=== PATIENT | female | born 2005 | race Caucasian/White ===

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

== ENCOUNTER 2024-03-12 16:41 | Emergency (ER) | payer OTHER, SELFPAY ==
[2024-03-12 17:17] VITALS: BP 129/62; PULSE 135; RESP 16; O2SAT 99
[2024-03-12 18:05] LABS: EDCOVIDSCREEN Negative (Negative)
[2024-03-12 18:05] LABS: EDINFLUASCREEN Negative (Negative); EDINFLUBSCREEN Negative (Negative)
--- NOTE | 2024-03-13 20:47 | ED.NAVMDI ---
HPI - Nausea/Vomiting/Diarrhea General Chief complaint: Nausea/Vomiting/Diarrhea Stated complaint: Abdominal Pain/Vomiting/Diarrhea Time Seen by Provider: 03/12/24 17:23 Source: patient, RN notes reviewed and old records reviewed Mode of arrival: ambulatory Limitations: no limitations History of Present Illness HPI Narrative: 18-[facility]-old [facility] to [facility] with complaint of nausea, abdominal discomfort, fever up to 100.4? for 2 days and vomiting and diarrhea that started today. Patient has vomited since [facility] to [facility] and last episode of diarrhea was just prior to arrival. Patient reports recent , states that she was approximately 5-6 weeks at most. Patient states that she utilized pills starting Saturday night. Patient reports vaginal bleeding 2 days ago that has slowly decreased to spotting currently. Patient denies weakness, fatigue, dizziness, allergies, pertinent medical history. Patient resting comfortably in exam room in no acute distress. Respirations even and nonlabored. Related Data Allergies Allergy/AdvReac Type Severity Reaction Status Date / Time No Known Allergies Allergy Unverified 06/15/17 16:22 Review of Systems Review of Systems: All systems reviewed & are unremarkable except as noted in HPI and below Constitutional: Constitutional: Reports as per HPI and Reports fever(s) Eyes: Eyes: Reports no additional eye complaints ENT: Reports system reviewed and no additional complaints, except as documented Cardiovascular: Cardiovascular: Reports no additional cardiovascular complaints, Denies chest pain and Denies dyspnea Respiratory: Respiratory: Reports no additional respiratory complaints, Denies cough and Denies dyspnea Gastrointestinal: Gastrointestinal: Reports as per HPI, Reports abdominal pain, Reports diarrhea, Reports nausea and Reports vomiting Musculoskeletal: Musculoskeletal: Reports no additional musculoskeletal complaints Neurologic: Reports system reviewed and no additional complaints, except as documented Psychiatric: Psychiatric: Reports no additional psychiatric complaints PMFSH Comments At the time of my signature, I reviewed and agree with the nursing past medical, surgical, social, and family history. There is no relevant family history pertinent to the patient complaint. Exam Const: General: cooperative, healthy appearing, comfortable, no acute distress, alert and well nourished Nutritional Appearance: well nourished Orientation/consciousness: patient oriented x3 Limitations: no limitations HENMT: Head: normal to inspection Ears: external ears normal Face/Nose/Sinus: Normal external nose present, Normal nares present, normal facial exam, No erythema and No edema Face and sinus: normal facial exam, no erythema and no edema Mouth: Yes Normal oral and palatal mucosa present Eyes: General: appearance normal, both eyes and all related structures Neck: Neck: normal visual inspection, full ROM and no meningeal signs Lymphatic: no lymphadenopathy noted and no lymphedema noted Chest: Chest palpation & inspection: normal inspection of the chest Resp: Effort & Inspection: normal respiratory effort and able to speak in complete sentences Auscultation: clear to auscultation bilaterally Cardio: Jugular venous distension: no JVD Rate: regular rate Rhythm: regular rhythm Back/Spine/Pelvis: Cervical Spine: cervical ROM normal Skin: General skin exam: normal color, no rashes or lesions noted and turgor normal Neuro: General: patient oriented x3, gait normal, moves all extremities and no meningeal signs Speech: normal speech Gait exam (Neuro): Normal gait present Extrem: General: normal to inspection, full ROM and capillary refill normal Psych: Appearance: grossly normal and well kempt Course Course Emergency Course: Some parts of this dictation were generated by voice recognition software and may contain typographical and/or grammatical inaccuraci
== END 2024-03-12 18:25 | disposition home or self-care (01) ==
PROVIDERS: Emergency Provider Nurse Practitioner Family
DX: O99.611 Diseases of the digestive system complicating pregnancy, first trimester (principal); K52.9 Noninfective gastroenteritis and colitis, unspecified; O98.511 Other viral diseases complicating pregnancy, first trimester; B34.9 Viral infection, unspecified; Z3A.00 Weeks of gestation of pregnancy not specified; Z20.822 Contact with and (suspected) exposure to COVID-19
CPT/HCPCS: 87426; 87804; 99213; G0463

== ENCOUNTER 2024-10-23 16:45 | Emergency (ER) | payer OTHER, SELFPAY ==
--- OUTSIDE RECORDS SUMMARY | 2024-10-23 16:48 | XMS_ITS | Clinical Summary ---
Author Organization [facility] Address [address] [place] [address] Phone Care Team Providers Care Dental Laboratory Technician Name Role Phone Jony Zuleta MD Primary Care Provider Allergies No known active allergies Medications ondansetron (ZOFRAN-ODT) 4 MG TABLET DISPERSIBLE Take 1 Tablet by mouth every 8 hours as needed for Nausea - 1st line. 10 Tablet 08/24/2024 Active Active Problems Problem Noted Date Diagnosed Date Acute pyelonephritis 03/14/2024 Hypokalemia 03/14/2024 Sepsis without acute organ d ysfunction, due to unspecified organism 03/13/2024 Medical 03/01/2024 Encounters Date Type Department Care Team Description 08/24/2024 9:41 AM CDT - 08/24/2024 11:08 AM CDT Emergency [facility] Emergency [address] [place] [address] Darryl Simental MD Abdominal cramping Discharge Disposition: Discharged to home or Selfcare 08/24/2024 Travel from Last 3 Months Social History Tobacco Use Types Packs/Day Years Used Date Smoking Tobacco: Never Smokeless Tobacco: Never Tobacco Cessation:Counseling Given: Not Answered Alcohol Use Standard Drinks/Week Comments Not Currently 0 (1 standard drink = 0.6 oz pur e alcohol) [facility] Utilities Answer Date Recorded In the past 12 months has [place] [employer] electric, gas, oil, or water company threatened to shut off services in your home? No 03/13/2024 Social Connection and Isolation Panel [NHANES] A nswer Date Recorded In a typical week, how many times do you talk on the phone with family, friends, or neighbors? Never 03/13/20 How often do you get togethe r with friends or relatives? Never 03/13/2024 How often do you attend chur ch or rastafari services? Never 03/13/2024 Do you belong to any clubs o r organizations such as restorationism groups, unions, fraternal or athletic groups, or school groups? No 03/13/2024 How often do you attend meet ings of the clubs or organizations you belong to? Never 03/13/2024 Are you , , di vorced, , never , or living with a partner? Living with partner 03/13/2024 AUDIT-C Answer Date Recorded Q1: How often do you have a drink containing alc ohol? Monthly or less 03/13/2024 Q2: How many drinks containi ng alcohol do you have on a typical day when you are drinking? 1 or 2 03/13/2024 Q3: How often do you have si x or more drinks on one occasion? Never 03/13/2024 Overall Financial Resource Strain (CARDIA) Answe r Date Recorded How hard is it for you to pa y for the very basics like food, housing, medical care, and heating? Not hard at all 03/13/2024 [facility] [place] [facility] Occupat ional Health - Occupational Stress Questionnaire Answer Date Recorded Do you feel stress - tense, restless, nervous, or anxious, or unable to sleep at night because your mind is troubled all the time - these days? Not at all 03/13/2024 Exercise Vital Sign Answer Date Recorde d On average, how many days pe r week do you engage in moderate to strenuous exercise (like a brisk walk)? 0 days 03/13/2024 On average, how many minutes do you engage in exercise at this level? 0 min 03/13/2024 Hunger Vital Sign Answer Date Recorded Within the past 12 months, y ou worried that your food would run out before you got the money to buy more. Never true 03/13/20 Within the past 12 months, t he food you bought just didn't last and you didn't have money to get more. Never true 03/13/2024 PRAPARE - Transportation Answer Date Re corded In the past 12 months, has l ack of transportation kept you from medical appointments or from getting medications? No 02/24 In the past 12 months, has l ack of transportation kept you from meetings, work, or from getting things needed for daily living? No 03/13/2024 Housing Stability Vital Sign Answer Mat e Recorded In the last 12 months, was t here a time when you were not able to pay the mortgage or rent on time? No 03/13/2024 In the past 12 months, how m any times have you moved where you were living? 3 03/13/2024 At any time in the past 12 m [facility], were you homeless or living in a correction (including now)? No 03/13/2024 Sexually Active Control Partners Comments Yes Comments No Sex and Gender Information Value Date Recorded Sex Assigned at Not on file Legal Sex Female 2:24 PM CDT Gender Identity Not on file Sexual Orientation Not on file Last Filed Vital Signs Vital Sign Reading Time Taken Comments Blood Pressure 116/46 08/24/2024 11:02 AM CDT Pulse 59 08/24/2024 11:02 AM CDT Temperature 36.2 C (97.2 F) 08/24/2024 9:38 AM CDT Respiratory Rate 18 08/24/2024 11:02 AM CDT Oxygen Saturation 98% 08/24/2024 11:02 AM CDT Inhaled Oxygen Concentration - - Weight 120.2 kg (265 lb) 08/24/2024 9:38 AM CDT Height 170.2 cm (5' 7) 08/24/2024 9:38 AM CDT Body Mass Index 41.5 08/24/2024 9:38 AM CDT Plan of Treatment Health Maintenance Due Date Last Done Comments Hepatitis C Virus (HCV) Screening 2004 Meningococcal B Immunization (1 of 2 - Standard) 2020 Influenza Immunization (#1) 01/26/2024/0 12/2018, 02/26/2018, 04/09/2014 SARS-COV-2 Immunization ( - season) 2024 Respiratory Syncytial Virus (RSV) Immunization (Adult) (1 - 1-dose 75+ series) 2079 Hepatitis B Immunization Completed 005, 2004, 2004 Pneumococcal Immunization Combined Aged Out 07/02/2005, 04/30/2005, 01/08/2005, Additional history exists No longer eligible based on patient's age to complete this topic Human Papillomavirus (HPV) Immunization Completed 01/26/2015, 04/09/2014, 12/17/2013 TdaP Immunization Completed 09/20/2015 Meningococcal Immunization (ACWY) Completed 01/11/2022, 09/20/2015 Rotavirus Immunization Aged Out No lo nger eligible based on patient's age to complete this topic Procedures Procedure Name Priority Date/Time Associated Diagnosis Comments CBC WITH AUTO DIFFERENTIAL STAT 08/24/2024 9:57 AM CDT GOLD TOP TUBE STAT 08/24/2024 9:57 AM CDT POCT URINE HCG () STAT 08/24/2024 9:57 AM CDT URINALYSIS REFLEX IF INDICATED BY ABNORMAL RESULTS STAT 08/24/2024 9:57 AM CDT LIPASE STAT 08/24/2024 9:57 AM CDT CMP (COMPREHENSIVE METABOLIC PANEL) STAT 08/24/2024 9:57 AM CDT COMPLETE BLOOD COUNT (CBC) WITH DIFF STAT 08/24/2024 9:57 AM CDT EXTRA TUBES STAT 08/24/2024 9:57 AM CDT from Last 3 Months Results * (ABNORMAL) Urinalysis w/ Reflex (08/24/2024 9:57 AM CDT) SPECIFIC GRAVITY 1.020 1.003 - 1.030 08/24/2024 10:43 AM CDT [facility] URINE PH 5.0 5.0 - 9.0 08/24/2024 10:43 AM CDT [facility] WBC ESTERASE Negative Negative 08/24/2024 10:43 AM CDT [facility] NITRITE Negative Negative 08/24/2024 10:43 AM CDT [facility] PROTEIN, RANDOM URINE 30 mg/dL(A) Negative 08/24/2024 10:43 AM CDT [facility] URINE GLUCOSE, QUAL Negative Negative 08/24/2024 10:43 AM CDT [facility] URINE KETONES Negative Negative 08/24/2024 10:43 AM CDT [facility] UROBILINOGEN Normal Normal mg/dL 08/24/2024 10:43 AM CDT [facility] URINE BLOOD 10 /uL(A) Negative neema/ul 08/24/2024 10:43 AM CDT [facility] URINALYSIS COLOR Yellow 08/24/2024 10:43 AM CDT [facility] URINALYSIS CLARITY Slightly Cloudy 08/24/2024 10:43 AM CDT [facility] WBC (Urine) 0-5 Negative, 0-5 /hpf 08/24/2024 10:43 AM CDT [facility] URINE RBC'S 0-2 Negative, 0-2 /hpf 08/24/2024 10:43 AM CDT [facility] EPITHELIAL CELLS Occasional /lpf 08/24/2024 10:43 AM CDT [facility] BACTERIA, URINE Few(A) Negative /hpf 08/24/2024 10:43 AM CDT [facility] Urine URINE SPECIMEN / Unknown Non-Phlebotomy Collection / Unknown 08/24/2024 9:57 AM CDT 08/24/2024 10:27 AM CDT us Darryl Simental MD URINE ORDERABLES Final Res ult [facility] [address] [place] [address] * Gold Top Tube (08/24/2024 9:57 AM CDT) Blood No Phlebotomy Charged / Unknown 08/24/2024 9:57 AM CDT 08/24/2024 10:28 AM CDT us Darryl Simental MD CHEMISTRY ORDERABLES Final Result [facility] [address] [place] [address] * CBC with Auto Differential (08/24/2024 9:57 AM CDT) WBC 8.47 4.00 - 12.00 10(3)/mcL 08/24/2024 10:31 AM CDT [facility] RBC 5.03 3.80 - 5.30 10(6)/[facility] 08/24/2024 10:31 AM CDT [facility] HEMOGLOBIN (HGB) 13.3 12.0 - 15.8 g/dL 08/24/2024 10:31 AM CDT [facility] HEMATOCRIT (HCT) 41.4 36.0 - 47.0 % 08/24/2024 10:31 AM CDT [facility] MCV 82.3 82.0 - 96.0 fL 08/24/2024 10:31 AM CDT [facility] MCH 26.4 26.0 - 34.0 pg 08/24/2024 10:31 AM CDT [facility] MCHC 32.1 31.0 - 36.0 g/dL 08/24/2024 10:31 AM CDT [facility] PLATELET COUNT 227 140 - 440 10(3)/mcL 08/24/2024 10:31 AM CDT [facility] RDW 14.7 11.8 - 15.5 % 08/24/2024 10:31 AM CDT [facility] MPV 11.4 9.7 - 12.4 fL 08/24/2024 10:31 AM CDT [facility] NEUTROPHILS 61.9 47.0 - 73.0 % 08/24/2024 10:31 AM CDT [facility] LYMPHOCYTES 27.9 18.0 - 42.0 % 08/24/2024 10:31 AM CDT [facility] MONOCYTES 7.6 4.0 - 12.0 % 08/24/2024 10:31 AM CDT [facility] EOSINOPHILS 2.1 0.0 - 5.0 % 08/24/2024 10:31 AM CDT [facility] BASOPHILS 0.5 0.0 - 1.0 % 08/24/2024 10:31 AM CDT [facility] ABSOLUTE NEUTROPHILS 5.25 1.60 - 7.70 10(3)/[facility] 08/24/2024 10:31 AM CDT [facility] ABSOLUTE LYMPHOCYTES 2.36 1.30 - 3.20 10(3)/[facility] 08/24/2024 10:31 AM CDT [facility] ABSOLUTE MONOCYTES 0.64 0.20 - 1.00 10(3)/[facility] 08/24/2024 10:31 AM CDT [facility] ABSOLUTE EOSINOPHIL 0.18 0.00 - 0.40 10(3)/[facility] 08/24/2024 10:31 AM CDT [facility] ABSOLUTE BASOPHILS 0.04 0.00 - 0.10 10(3)/[facility] 08/24/2024 10:31 AM CDT [facility] NRBC PER 100 WBC 0 08/25/19 25 10:31 AM CDT [facility] Blood Venipuncture / Unknown 08/24/2024 9:57 AM CDT 08/24/2024 10:28 AM CDT us Darryl Simental MD HEMATOLOGY ORDERABLES Mariela l Result [facility] [address] [place] [address] * Lipase (08/24/2024 9:57 AM CDT) LIPASE 21 8 - 78 U/L 08/24/2024 11:05 AM CDT [facility] Blood Venipuncture / Unknown 08/24/2024 9:57 AM CDT 08/24/2024 10:28 AM CDT us Darryl Simental MD CHEMISTRY ORDERABLES Final Result [facility] [address] [place] [address] * (ABNORMAL) CMP (08/24/2024 9:57 AM CDT) SODIUM 138 136 - 145 mmol/L 08/24/2024 10:51 AM CDT [facility] POTASSIUM 4.0 3.5 - 5.1 mmol/L 08/24/2024 10:51 AM CDT [facility] CHLORIDE 111(H) 98 - 107 mmol/L 08/24/2024 10:51 AM CDT [facility] CO2, VENOUS 17(L) 22 - 30 mmol/L 08/24/2024 10:51 AM CDT [facility] ANION GAP 14.0 <18.0 mmol/L 08/24/2024 10:51 AM CDT [facility] GLUCOSE 121(H) 70 - 99 mg/dL 08/24/2024 10:51 AM CDT [facility] BUN 9 5 - 18 mg/dL 08/24/2024 10:51 AM CDT [facility] CREATININE, BLOOD 0.66 0.60 - 1.00 mg/dL 08/24/2024 10:51 AM CDT [facility] BUN/CREATININE RATIO 14 12 - 20 ratio 08/24/2024 10:51 AM CDT [facility] TOTAL PROTEIN 7.8 6.0 - 8.0 g/dL 08/24/2024 10:51 AM CDT [facility] ALBUMIN 4.3 3.5 - 5.0 g/dL 08/24/2024 10:51 AM CDT [facility] A/G RATIO 1.2 1.0 - 2.2 08/24/2024 10:51 AM CDT [facility] CALCIUM 9.4 8.7 - 10.5 mg/dL 08/24/2024 10:51 AM CDT [facility] T BILI 0.3 0.2 - 1.2 mg/dL 08/24/2024 10:51 AM CDT [facility] SGOT (AST) 22 <43 U/L 08/24/2024 10:51 AM CDT [facility] SGPT (ALT) 15 <56 U/L 08/24/2024 10:51 AM CDT [facility] ALKALINE PHOSPHATASE 74 40 - 150 U/L 08/24/2024 10:51 AM CDT [facility] GFR, ESTIMATED >60 >=60 08/24/2024 10:51 AM CDT [facility] Comment: Creatinine Clearance is the preferred criteria for selecting drug dose adjustments in renally impaired patients. The GFR is provided as additional pertinent clinical information. GFR is reported in mL/min/1.73 sq m. Calculation based on the Chronic Kidney Disease Epidemiology Collaboration (CKD- EPI) equation refit without adjustment for race. GFR, EST. >60 >=60 025 10:51 AM CDT [facility] GFR, EST. NONAFRICAN >60 >=60 08/24/2024 10:51 AM CDT [facility] Blood Venipuncture / Unknown 08/24/2024 9:57 AM CDT 08/24/2024 10:28 AM CDT us Darryl Simental MD CHEMISTRY ORDERABLES Final Result [facility] [address] [place] [address] * POCT Urine HCG () (08/24/2024 9:57 AM CDT) POC URINE Negative POC URINE CONTROL Nailhead Operator Pass Urine 08/24/2024 9:57 AM CDT Darryl Simental MD POINT OF CARE TESTING (MAN UAL) Final Result from Last 3 Months Insurance MEDICAID BUCK Advance Directives * Full Code (Latest Code Status on File) Date Activated Date Inactivated Comments 03/13/2024 7:39 PM CPR-Full Landy tment: FULL ARREST: Attempt Resuscitation/CPR wit intubation and mechanical ventilation. PRE-ARREST: Use entire range of life support measures to stabilize the patient. Care Teams Dental Laboratory Technician Relationship Specialty Start Date End Date Jony Zuleta MD [address] [place] [address] PCP - General Pediatrics 03/13/24
--- OUTSIDE RECORDS SUMMARY | 2024-10-23 16:48 | XMS_ITS | Clinical Summary ---
Author Organization [facility] Address [address] [place] [id number] Phone Care Team Providers Care Administrative Services Officer Name Role Phone Jony Zuleta MD Primary Care Provider [phone] Allergies No known active allergies Medications No known medications Active Problems Problem Noted Date Diagnosed Date Closed fracture of right fibula and tibia 2017 Social History Tobacco Use Types Packs/Day Years Used Date Smoking Tobacco: Never Smokeless Tobacco: Never Adolescent Education Answer Date Record ed Getting School Help Needed Not on file 12/29 Comments No Sex and Gender Information Value Date Recorded Sex Assigned at Not on file Legal Sex Female 7:21 PM CDT Gender Identity Not on file Sexual Orientation Not on file Last Filed Vital Signs Vital Sign Reading Time Taken Comments Blood Pressure 115/63 11/10/2017 8:30 PM CDT Pulse - - Temperature 36.8 C (98.2 F) 11/10/2017 8:30 PM CDT Respiratory Rate 18 11/10/2017 8:30 PM CDT Oxygen Saturation 100% 11/10/2017 8:30 PM CDT Inhaled Oxygen Concentration - - Weight 63.5 kg (140 lb) 11/10/2017 8:30 PM CDT Height - - Body Mass Index - - Plan of Treatment Health Maintenance Due Date Last Done Comments CHLAMYDIA SCREENING (ANNUAL) 11-24 YEARS 2015 HPV VACCINES (1 - 3-dose series) 2019 DTAP/TDAP/TD VACCINES (1 - Tdap) 2023 HEPATITIS B VACCINES (1 of 3 - 19+ 3-dose series) 07/2023 INFLUENZA VACCINE (#1) 2023 Insurance [place] Care Teams Administrative Services Officer Relationship Specialty Start Date End Date Jony Zuleta MD [address] [place] [address] PCP - General Pediatrics 11/09/17
[2024-10-23 16:49] VITALS: BP 139/82; PULSE 99; RESP 20; TEMP 36.6; O2SAT 100
--- OUTSIDE RECORDS SUMMARY | 2024-10-23 17:38 | XMS_ITS | Clinical Summary ---
Author Organization [facility] Address [address] [place] [phone] Phone Care Team Providers Care Drill Bit Sharpener Name Role Phone Jony Zuleta MD Primary Care Provider [phone] Allergies No known active allergies Medications No [...] [place] Care Teams Drill Bit Sharpener Relationship Specialty Start Date End Date Jony Zuleta MD [address] [place] [address] PCP - General Pediatrics 11/09/17
--- OUTSIDE RECORDS SUMMARY | 2024-10-23 17:38 | XMS_ITS | Clinical Summary ---
Author Organization [facility] [employer] Address [address] [facility] [place] [address] Care Team Providers Care Hooker Up Name Role Phone Jony Zuleta MD Primary Care Provider [phone] Source Comments [facility] [employer],non-owned Affiliates and Associated Physician Practices is amultiple site organization consisting of ambulatory clinics and hospital sitesin [place], [place], [place] and [place]. This disclosure is being madepursuant to the Care Everywhere program and may not contain all information available regarding this patient. Last updated 18.[facility] Allergies No known active allergies Medications * Be aware that medications may not be up to date on this document. Alwaysverify current medications with the patient. ibuprofen (MOTRIN) 400 MG tablet Take 1 tablet by mouth every 6 hours as needed 70 tablet 1 11/22/2017 Active HYDROcodone-acet aminophen (NORCO) 5-325 MG tablet Take 1 tablet by mouth every 6 hours as needed for Pain Active Active Problems Problem Noted Date Diagnosed Date Retained orthopedic hardware 02/19/2019 Fracture, tibia and fibula, right, closed, with routine healing, subsequent encounter 12/26/2017 Triplane fracture of ankle, right, closed, with routine healing, subsequent encounter 12/26/2017 Closed fracture of hip 11/21/2017 Overview (11/21/2017): plz note-- Fracture of tibia Closed fracture of right distal tibia 11/21/2017 Social History Tobacco Use Types Packs/Day Years Used Date Smoking Tobacco: Passive Smo ke Exposure - Never Smoker Smokeless Tobacco: Never Alcohol Use Standard Drinks/Week Comments No 0 (1 standard drink = 0.6 oz pur e alcohol) Comments No Sex and Gender Information Value Date Recorded Sex Assigned at Not on file Legal Sex Female 2:53 PM CDT Gender Identity Not on file Sexual Orientation Not on file Last Filed Vital Signs Vital Sign Reading Time Taken Comments Blood Pressure 104/66 03/20/2019 9:15 AM CDT Pulse 64 03/20/2019 9:15 AM CDT Temperature 36.8 C (98.3 F) 03/20/2019 9:15 AM CDT Respiratory Rate 18 03/20/2019 9:15 AM CDT Oxygen Saturation 96% 02/19/2019 10:50 AM CDT Inhaled Oxygen Concentration 100% 02/19/2019 9 :45 AM CDT Weight 87.8 kg (193 lb 9 oz) 03/20/2019 9:15 AM CDT Height 164 cm (5' 4.57) 03/20/2019 9:15 AM CDT Body Mass Index 32.64 03/20/2019 9:15 AM CDT Plan of Treatment Health Maintenance Due Date Last Done Comments HIV SCREENING 2019 HPV VACCINE (1 - 3-dose series) 2019 CHLAMYDIA/GONORRHEA SCREENING 2020 MENINGOCOCCAL (Group B) VACCINE SHARED DECISION-MAKING (1 of 2 - Standard) 2020 HEPATITIS C SCREENING 06/25/2022 DTAP/TDAP/TD VACCINES (1 - Tdap) 2023 HEPATITIS B VACCINE (1 of 3 - 19+ 3-dose series) 2023 COVID-19 VACCINE (1 - 2023-2 5 season) 2024 DEPRESSION SCREENING 05/27/2024 INFLUENZA VACCINE (Season Ended) 2025 04/09/2014, 02/27/2008 ZOSTER VACCINE (1 of 2) 2054 HIB VACCINE Aged Out No longer eligi ble based on patient's age to complete this topic MENINGOCOCCAL GROUPS A/C/Y/W VACCINE Aged Out No longer eligible b ased on patient's age to complete this topic PNEUMOCOCCAL VACCINE Aged Out No long er eligible based on patient's age to complete this topic Medical Devices Explanted Type Area Field Operations Supervisor Device Identifier Shelf Expiration Date Model / Serial / Lot Wire K 3mm 21mm Ss Orth Fx Explanted:Qty: 1 on 11/21/2017 at [facility] Right: Ankle [employer] -1030-0 06 / / Screw 5mm 36mm Boni 2 Ld Slf-Tap Phnx Ti Implanted:Qty: 1 Explanted:Qty: 1 on 11/21/2017 at [facility] Right: Ankle [employer] 06/10/2027 [id number] / / [id number] Wshr 4mm Orthopediatrics Orth Ss Implanted:Qty: 1 on 11/21/2017 by Lori Vidales MD at [facility] Explanted:Qty: 1 on 02/19/2019 by Lori Vidales MD at [facility] Right: Ankle [employer] 0-0 00 / / Screw 4mm 46mm St Hum Prox Andres Slf-Tap Implanted:Qty: 1 on 11/21/2017 by Lori Vidales MD at [facility] Explanted:Qty: 1 on 02/19/2019 by Lori Vidales MD at [facility] Right: Ankle [employer] 0-2 46 / / Nail 9mm 310mm Im Tib Phnx Implanted:Qty: 1 on 11/21/2017 by Lori Vidales MD at [facility] Explanted:Qty: 1 on 02/19/2019 by Lori Vidales MD at [facility] Right: Ankle [employer] 05/03/2027 [id number] / / [id number] Screw 5mm 34mm Boni 2 Ld Slf-Tap Phnx Ti Implanted:Qty: 1 on 11/21/2017 at [facility] Explanted:Qty: 1 on 02/19/2019 by Lori Vidales MD at [facility] Right: Ankle [employer] 12/21/2026 [id number] / / [id number] Screw 5mm 32mm Boni 2 Ld Slf-Tap Phnx Ti Implanted:Qty: 1 on 11/21/2017 by Lori Vidales MD at [facility] Explanted:Qty: 1 on 02/19/2019 by Lori Vidales MD at [facility] Right: Ankle [employer] 04/19/2027 [id number] / / [id number] Screw 5mm 30mm Boni 2 Ld Slf-Tap Phnx Ti Implanted:Qty: 1 on 11/21/2017 by Lori Vidales MD at [facility] Explanted:Qty: 1 on 02/19/2019 by Lori Vidales MD at [facility] Right: Ankle [employer] 04/26/2022 [id number] / / [id number] Screw 5mm 32mm Boni 2 Ld Slf-Tap Phnx Ti Implanted:Qty: 1 on 11/21/2017 by Lori Vidales MD at [facility] Explanted:Qty: 1 on 02/19/2019 by Lori Vidales MD at [facility] Right: Ankle [employer] 11/02/2026 [id number] / / [id number] Insurance [facility] Advance Directives * Full Code (Latest Code Status on File) Date Activated Date Inactivated Comments 11/21/2017 3:13 PM 11/22/2017 7:17 PM Care Teams Hooker Up Relationship Specialty Start Date End Date Jony Zuleta MD [address] [place] [phone] PCP - General Pediatrics 03/20/19
--- OUTSIDE RECORDS SUMMARY | 2024-10-23 17:38 | XMS_ITS | Clinical Summary ---
Author Organization [facility] Address [address] [place] [address] Phone Care Team Providers Care Forest Supervisor Name Role Phone Jony Zuleta MD Primary [...] 08/24/2024 11:08 AM CDT Emergency [facility] Emergency [address] [place] [address] Darryl Simental MD Abdominal cramping Discharge Disposition: Discharged to home or Selfcare 08/24/2024 Travel from Last 3 Months Social History Tobacco Use Types Packs/Day Years Used Date Smoking Tobacco: Never Smokeless Tobacco: Never Tobacco Cessation:Counseling Given: Not Answered Alcohol Use Standard Drinks/Week Comments Not Currently 0 (1 standard drink = 0.6 oz pur e alcohol) [facility] Utilities Answer Date Recorded In the past 12 months has [employer] electric, gas, oil, or water company threatened [...] often do you attend chur ch or gnosticism services? Never 03/13/2024 Do you belong to any clubs o r organizations such as holiness groups, unions, fraternal or athletic groups, or [...] and heating? Not hard at all 03/13/2024 [facility] [place] of Occupat ional Health - Occupational Stress [...] any time in the past 12 m [facility], were you homeless or living in a [...] - 1.030 08/24/2024 10:43 AM CDT [facility] URINE PH 5.0 5.0 - 9.0 08/24/2024 10:43 AM CDT [facility] WBC ESTERASE Negative Negative 08/24/2024 10:43 AM CDT [facility] NITRITE Negative Negative 08/24/2024 10:43 AM CDT [facility] PROTEIN, RANDOM URINE 30 mg/dL(A) Negative 08/24/2024 10:43 AM CDT [facility] URINE GLUCOSE, QUAL Negative Negative 08/24/2024 10:43 AM CDT [facility] URINE KETONES Negative Negative 08/24/2024 10:43 AM CDT [facility] UROBILINOGEN Normal Normal mg/dL 08/24/2024 10:43 AM CDT [facility] URINE BLOOD 10 /uL(A) Negative neema/ul 08/24/2024 10:43 AM CDT [facility] URINALYSIS COLOR Yellow 08/24/2024 10:43 AM CDT [facility] URINALYSIS CLARITY Slightly Cloudy 08/24/2024 10:43 AM CDT [facility] WBC (Urine) 0-5 Negative, 0-5 /hpf 08/24/2024 10:43 AM CDT [facility] URINE RBC'S 0-2 Negative, 0-2 /hpf 08/24/2024 10:43 AM CDT [facility] EPITHELIAL CELLS Occasional /lpf 08/24/2024 10:43 AM CDT [facility] BACTERIA, URINE Few(A) Negative /hpf 08/24/2024 10:43 AM CDT [facility] Urine URINE SPECIMEN / Unknown Non-Phlebotomy Collection / Unknown 08/24/2024 9:57 AM CDT 08/24/2024 10:27 AM CDT us Darryl Simental MD URINE ORDERABLES Final Res ult [facility] [address] [place] [address] * Gold Top Tube (08/24/2024 9:57 AM CDT) Blood No Phlebotomy Charged / Unknown 08/24/2024 9:57 AM CDT 08/24/2024 10:28 AM CDT us Darryl Simental MD CHEMISTRY ORDERABLES Final Result [facility] [address] [place] [address] * CBC with Auto Differential (08/24/2024 9:57 AM CDT) WBC 8.47 4.00 - 12.00 10(3)/mcL 08/24/2024 10:31 AM CDT [facility] RBC 5.03 3.80 - 5.30 10(6)/[facility] 08/24/2024 10:31 AM CDT [facility] HEMOGLOBIN (HGB) 13.3 12.0 - 15.8 g/dL 08/24/2024 10:31 AM CDT [facility] HEMATOCRIT (HCT) 41.4 36.0 - 47.0 % 08/24/2024 10:31 AM CDT [facility] MCV 82.3 82.0 - 96.0 fL 08/24/2024 10:31 AM CDT [facility] MCH 26.4 26.0 - 34.0 pg 08/24/2024 10:31 AM CDT [facility] MCHC 32.1 31.0 - 36.0 g/dL 08/24/2024 10:31 AM CDT [facility] PLATELET COUNT 227 140 - 440 10(3)/mcL 08/24/2024 10:31 AM CDT [facility] RDW 14.7 11.8 - 15.5 % 08/24/2024 10:31 AM CDT [facility] MPV 11.4 9.7 - 12.4 fL 08/24/2024 10:31 AM CDT [facility] NEUTROPHILS 61.9 47.0 - 73.0 % 08/24/2024 10:31 AM CDT [facility] LYMPHOCYTES 27.9 18.0 - 42.0 % 08/24/2024 10:31 AM CDT [facility] MONOCYTES 7.6 4.0 - 12.0 % 08/24/2024 10:31 AM CDT [facility] EOSINOPHILS 2.1 0.0 - 5.0 % 08/24/2024 10:31 AM CDT [facility] BASOPHILS 0.5 0.0 - 1.0 % 08/24/2024 10:31 AM CDT [facility] ABSOLUTE NEUTROPHILS 5.25 1.60 - 7.70 10(3)/[facility] 08/24/2024 10:31 AM CDT [facility] ABSOLUTE LYMPHOCYTES 2.36 1.30 - 3.20 10(3)/[facility] 08/24/2024 10:31 AM CDT [facility] ABSOLUTE MONOCYTES 0.64 0.20 - 1.00 10(3)/[facility] 08/24/2024 10:31 AM CDT [facility] ABSOLUTE EOSINOPHIL 0.18 0.00 - 0.40 10(3)/[facility] 08/24/2024 10:31 AM CDT [facility] ABSOLUTE BASOPHILS 0.04 0.00 - 0.10 10(3)/[facility] 08/24/2024 10:31 AM CDT [facility] NRBC PER 100 WBC 0 08/25/19 25 10:31 AM CDT [facility] Blood Venipuncture / Unknown 08/24/2024 9:57 AM CDT 08/24/2024 10:28 AM CDT us Darryl Simental MD HEMATOLOGY ORDERABLES Mariela l Result [facility] [address] [place] [address] * Lipase (08/24/2024 9:57 AM CDT) LIPASE 21 8 - 78 U/L 08/24/2024 11:05 AM CDT [facility] Blood Venipuncture / Unknown 08/24/2024 9:57 AM CDT 08/24/2024 10:28 AM CDT us Darryl Simental MD CHEMISTRY ORDERABLES Final Result [facility] [address] [place] [address] * (ABNORMAL) CMP (08/24/2024 9:57 AM CDT) SODIUM 138 136 - 145 mmol/L 08/24/2024 10:51 AM CDT [facility] POTASSIUM 4.0 3.5 - 5.1 mmol/L 08/24/2024 10:51 AM CDT [facility] CHLORIDE 111(H) 98 - 107 mmol/L 08/24/2024 10:51 AM CDT [facility] CO2, VENOUS 17(L) 22 - 30 mmol/L 08/24/2024 10:51 AM CDT [facility] ANION GAP 14.0 <18.0 mmol/L 08/24/2024 10:51 AM CDT [facility] GLUCOSE 121(H) 70 - 99 mg/dL 08/24/2024 10:51 AM CDT [facility] BUN 9 5 - 18 mg/dL 08/24/2024 10:51 AM CDT [facility] CREATININE, BLOOD 0.66 0.60 - 1.00 mg/dL 08/24/2024 10:51 AM CDT [facility] BUN/CREATININE RATIO 14 12 - 20 ratio 08/24/2024 10:51 AM CDT [facility] TOTAL PROTEIN 7.8 6.0 - 8.0 g/dL 08/24/2024 10:51 AM CDT [facility] ALBUMIN 4.3 3.5 - 5.0 g/dL 08/24/2024 10:51 AM CDT [facility] A/G RATIO 1.2 1.0 - 2.2 08/24/2024 10:51 AM CDT [facility] CALCIUM 9.4 8.7 - 10.5 mg/dL 08/24/2024 10:51 AM CDT [facility] T BILI 0.3 0.2 - 1.2 mg/dL 08/24/2024 10:51 AM CDT [facility] SGOT (AST) 22 <43 U/L 08/24/2024 10:51 AM CDT [facility] SGPT (ALT) 15 <56 U/L 08/24/2024 10:51 AM CDT [facility] ALKALINE PHOSPHATASE 74 40 - 150 U/L 08/24/2024 10:51 AM CDT [facility] GFR, ESTIMATED >60 >=60 08/24/2024 10:51 AM CDT [facility] Comment: Creatinine Clearance is the preferred criteria for selecting drug dose adjustments in renally impaired patients. The GFR is provided as additional pertinent clinical information. GFR is reported in mL/min/1.73 sq m. Calculation based on the Chronic Kidney Disease Epidemiology Collaboration (CKD- EPI) equation refit without adjustment for race. GFR, EST. >60 >=60 025 10:51 AM CDT [facility] GFR, EST. NONAFRICAN >60 >=60 08/24/2024 10:51 AM CDT [facility] Blood Venipuncture / Unknown 08/24/2024 9:57 AM CDT 08/24/2024 10:28 AM CDT us Darryl Simental MD CHEMISTRY ORDERABLES Final Result [facility] [address] [place] [address] * POCT Urine HCG () (08/24/2024 9:57 AM CDT) POC URINE Negative POC URINE CONTROL Lithography Contact Worker Pass Urine 08/24/2024 9:57 AM CDT Darryl [...] measures to stabilize the patient. Care Teams Forest Supervisor Relationship Specialty Start Date End Date Jony Zuleta MD [address] [place] [address] PCP - General Pediatrics 03/13/24
--- NOTE | 2024-10-23 18:06 | ED_ITS ---
HPI - General Adult General Chief complaint: Neck Pain/Injury Stated complaint: heard a pop in neck/drainage back throat Time Seen by Provider: 10/23/24 17:27 History of Present Illness HPI narrative: This is a 19-year-old female presenting with strange neck sensation. Patient says that she was driving and rubbing the back her neck she thought she felt something pop and had a sensation of something wet dripping down the inside of her neck. She says it seemed like when mucus was going down her throat except in her neck. It was associated with with flushing of her face in a strange sensation top of her head. She had the overwhelming feeling that something was wrong. She then pulled over and her symptoms resolved. She is currently asymptomatic. She has a history of panic attacks although has not had 1 recently. Related Data Allergies Allergy/AdvReac Type Severity Reaction Status Date / Time No Known Allergies Allergy Unverified 06/15/17 16:22 Exam Narrative: APPEARANCE: No apparent distress. Head: atraumatic. EYES: EOMI, NOSE: Atraumatic NECK: Soft, supple, no midline tenderness, tenderness over the right trapezius muscle, full range of motion without pain RESPIRATORY: No increased rate of breathing, CTAB CARDIOVASCULAR: RRR, no peripheral edema ABDOMINAL: Non-distended soft nontender MUSCULOSKELETAl: No obvious deformities NEURO: Alert. Cranial nerves 2-12 grossly intact. Sensation light touch, motor function cerebellar function intact for 4 extremities. Gait exam was normal. SKIN:: Warm, dry. Normal color PSYCHIATRIC: Normal affect Course Vital Signs Vital signs: Vital Signs Temperature 98 F 10/23/24 16:49 Pulse Rate 99 10/23/24 16:49 Respiratory Rate 20 10/23/24 16:49 Blood Pressure 139/82 10/23/24 16:49 Pulse Oximetry 100 10/23/24 16:49 Oxygen Delivery Room Air 10/23/24 16:49 Temperature 98 F 10/23/24 16:49 Pulse Rate 99 10/23/24 16:49 Respiratory Rate 20 10/23/24 16:49 Blood Pressure 139/82 10/23/24 16:49 Pulse Oximetry 100 10/23/24 16:49 Oxygen Delivery Room Air 10/23/24 16:49 Medical Decision Making [facility] Narrative Medical decision making narrative: -Course: 19-year-old female presenting with strange sensation while driving including a wet sensation your pain down her neck, facial flushing, and a feeling of overwhelming dread. Symptoms have all since resolved. Her neurologic exam is unremarkable. She has tenderness over the right trapezius but no other findings. She has full range of motion of the neck. Patient will be discharged follow-up with primary care physician. Unclear cause of her strange sensations but I do not appreciate any life threats. Given return precautions if she develops any new or worsening symptoms. Vital Signs Vital Signs: Vital Signs Temperature 98 F 10/23/24 16:49 Pulse Rate 99 10/23/24 16:49 Respiratory Rate 20 10/23/24 16:49 Blood Pressure 139/82 10/23/24 16:49 Pulse Oximetry 100 10/23/24 16:49 Oxygen Delivery Room Air 10/23/24 16:49 Temperature 98 F 10/23/24 16:49 Pulse Rate 99 10/23/24 16:49 Respiratory Rate 20 10/23/24 16:49 Blood Pressure 139/82 10/23/24 16:49 Pulse Oximetry 100 10/23/24 16:49 Oxygen Delivery Room Air 10/23/24 16:49 Discharge Plan Discharge Clinical Impression: Neck complaint Patient Disposition: Home Condition: Stable Instructions: Antibiotic Form, Neck Pain (ED) Additional Instructions: You seen in the emergency department after having a strain sensation in your neck and facial flushing. Please call your primary care physician in arrange close follow-up in the next 24-48 hours. If you develop any new or worsening symptoms return to the ED. Patient Language: Estonian Prescriptions: No Action ondansetron 4 mg tablet,disintegrating 4 mg PO Q8H PRN (Reason: nausea and vomiting) Qty: 7 0RF Follow-up/Referrals: UNKNOWN,DOCTOR [Primary Care Provider] -
== END 2024-10-23 18:19 | disposition home or self-care (01) ==
PROVIDERS: Emergency Provider Emergency Medicine
DX: M54.2 Cervicalgia (principal)
CPT/HCPCS: 99281